=== PATIENT | male | born 1990 | race Hispanic/Latino ===

== ENCOUNTER 2019-12-11 12:40 | Outpatient (CLI) | payer OTHER, SELFPAY ==
--- NOTE | ~2019-12-11 | XR_ITS ---
XR ankle LT min 3V 12/11/2019 13:07 Indication: Left ankle pain Procedure: 4 views left ankle Comparison: No prior studies for comparison. Findings: No acute fracture or traumatic malalignment. Ankle mortise intact. Talar dome is normal. No significant soft tissue abnormality. No radiopaque foreign bodies. Impression: 1: No significant bone or joint abnormality. Reviewed, dictated and finalized at location A. Impression: 1: No significant bone or joint abnormality.
--- NOTE | ~2019-12-11 | XR_ITS ---
XR knee LT 3V 12/11/2019 13:07 Indication: Left knee pain Procedure: 3 views left knee Comparison: No prior studies for comparison. Findings: No fracture, subluxation or dislocation. No significant joint space narrowing. No joint eff usion. No focal soft tissue abnormality. Impression: 1: No significant bone or joint abnormality. Reviewed, dictated and finalized at location A. Impression: 1: No significant bone or joint abnormality.
== END 2019-12-11 12:41 | disposition home or self-care (01) ==
PROVIDERS: PCP Family Medicine; Visit Provider Family Medicine
DX: M25.572 Pain in left ankle and joints of left foot (principal)
CPT/HCPCS: 73562; 73610

== ENCOUNTER 2024-05-13 09:27 | Emergency (ER) | payer OTHER, BC, SELFPAY ==
--- NOTE | 2024-05-13 09:42 | ED.GENADULT ---
HPI - General Adult General Chief complaint: Wound/Laceration Stated complaint: R LEG LACERATION Source: patient Mode of arrival: ambulatory Limitations: no limitations History of Present Illness HPI narrative: Patient presents for evaluation of right thigh laceration. Symptom onset just prior to arrival. He accidentally cut his leg using an oscillating tool at work. He reports some minimal pain in the affected area without descriptive quality or numerical rating. He has a small amount of bleeding from the laceration. He is not diabetic. Last tetanus approximately 3 years ago. Related Data Allergies Allergy/AdvReac Type Severity Reaction Status Date / Time No Known Allergies Allergy Verified 05/13/24 09:49 Review of Systems Review of Systems: CONSTITUTIONAL: Denies fever, chills, or sweats. EYES: Denies visual changes, redness, or discharge. ENT: Denies rhinorrhea, congestion, sore throat, or otalgia. CARDIOVASCULAR: Denies chest pain, palpitations, or edema. RESPIRATORY: Denies cough or dyspnea. GASTROINTESTINAL: Denies abdominal pain, nausea, vomiting, or diarrhea. GENITOURINARY: Denies dysuria or hematuria. SKIN: Reports right thigh laceration MUSCULOSKELETAL: Denies back pain, joint pain, or myalgia. NEUROLOGIC: Denies headache, numbness, dizziness, or weakness. PSYCHIATRIC: Denies anxiety or depression. FOR[facility]LY [facility], [facility] Past Medical History Medical History No pertinent past medical history Surgical History Surgical History No pertinent past surgical history Family History Family History Mother Family history non-contributory Social History Social History Smoking status: Never smoker Living arrangements: with family Gender identity (if verbalized by the patient): Male Spiritual care concerns: No Exam Narrative: GENERAL: Well-appearing, well-nourished, and in no acute distress. HEAD: Normocephalic, atraumatic. EYES: PERRLA and EOMI. ENT: Nares clear, no rhinorrhea or epistaxis. Mucous membranes moist. Oropharynx without tonsillar hypertrophy exudate or other lesions. Bilateral TMs pearly patino nonbulging NECK: Supple. No adenopathy or masses. No carotid bruits or JVD CHEST: Clear to auscultation. No respiratory distress. No wheezes rales or rhonchi HEART: Regular rate and rhythm. No murmur heard. Normal peripheral pulses. ABDOMEN: Soft, nontender, nondistended, normal active bowel sounds. EXTREMITIES: Normal range of motion. No edema. SKIN: Approximately 4 cm linear laceration in a transverse formation to the anterior aspect of the distal right thigh. There is a small amount of active sanguinous drainage NEURO: No focal deficits. Alert and oriented x3. PSYCH: Normal mood and affect. Course Course Emergency Course: This is a 33-year-old male who presented for evaluation right thigh laceration. Wound was thoroughly irrigated and closed with sutures. Pt tolerated well. He is UTD on tetanus. Advised on wound care. Increase hydration. OTC agents for symptom management. Will dc with cephalexin. Follow up with primary provider and occupational health. Go to the ER for evidence infection. Pt in agreement with plan of care. Level of Care: Express Care Visit Vital Signs Vital signs: Vital Signs Temperature 36.8 C 05/13/24 09:55 Pulse Rate 61 05/13/24 09:55 Respiratory Rate 16 05/13/24 09:55 Blood Pressure 160/89 H 05/13/24 09:55 Pulse Oximetry 100 05/13/24 09:55 Temperature 36.8 C 05/13/24 09:55 Pulse Rate 61 05/13/24 09:55 Respiratory Rate 16 05/13/24 09:55 Blood Pressure 160/89 H 05/13/24 09:55 Pulse Oximetry 100 05/13/24 09:55 Procedures Laceration Laceration 1: Date: 05/13/24 Ti
[2024-05-13 09:55] VITALS: BP 160/89; PULSE 61; RESP 16; TEMP 36.8; O2SAT 100
--- NOTE | 2024-05-13 09:56 | PC.NURSE ---
0945 right pant's leg from knee down cut and removed with patient's permission, done to expose laceration and preserve modesty. 4cm laceration with small amount of bloody drainage noted to the anterior distal right thigh (above the knee). Area cleansed with wound cleanser and saline, damp 4x4 applied to laceration.
== END 2024-05-13 10:48 | disposition home or self-care (01) ==
PROVIDERS: Emergency Provider Nurse Practitioner
DX: S71.111A Laceration without foreign body, right thigh, initial encounter (principal); W29.8XXA Contact with other powered hand tools and household machinery, initial encounter; Y99.0 Civilian activity done for income or pay
CPT/HCPCS: 12002; 99213; G0463; J2003

== ENCOUNTER 2024-05-26 11:16 | Emergency (ER) | payer OTHER, SELFPAY ==
[2024-05-26 11:31] VITALS: BP 127/77; PULSE 66; RESP 16; TEMP 36.6; O2SAT 98
--- NOTE | 2024-05-26 11:40 | ED.WOUNDLAC ---
HPI - Wound/Laceration General Chief Complaint: Wound/Laceration Stated Complaint: Removal of Stitches Time Seen by Provider: 05/26/24 11:29 Source: patient, RN notes reviewed and old records reviewed Mode of arrival: ambulatory Limitations: no limitations History of Present Illness HPI narrative: Patient presents today for suture removal. Sutures were placed in the right anterior thigh on 05/13/2024. Patient denies any difficulties with the sutures. Related Data Allergies Allergy/AdvReac Type Severity Reaction Status Date / Time No Known Allergies Allergy Verified 05/13/24 09:49 Review of Systems Review of Systems: CONSTITUTIONAL: Denies body aches, fever, chills, or sweats. EYES: Denies visual changes, redness, or discharge. ENT: Denies rhinorrhea, congestion, sore throat, or otalgia. CARDIOVASCULAR: Denies chest pain, palpitations, or edema. RESPIRATORY: Denies cough or dyspnea. GASTROINTESTINAL: Denies abdominal pain, nausea, vomiting, or diarrhea. GENITOURINARY: Denies dysuria or hematuria. SKIN: Healing Laceration to right thigh MUSCULOSKELETAL: Denies back pain, joint pain, or myalgia. NEUROLOGIC: Denies headache, numbness, tingling, or weakness. PSYCH: Denies depression or anxiety. PMFSH Past Medical History Medical History No pertinent past medical history Surgical History Surgical History No pertinent past surgical history Family History Family History Mother Family history non-contributory Social History Social History Smoking status: Never smoker Living arrangements: with family Gender identity (if verbalized by the patient): Male Spiritual care concerns: No Comments At time of signature, I have reviewed and agree with nursing past medical, surgical, social and family history unless otherwise noted. Please see nursing chart for further information. There is no relevant family history pertinent to the presenting complaint Exam Narrative: GENERAL: Well-appearing, well-nourished, and in no acute distress. HEAD: Normocephalic, atraumatic. EYES: EOMI. No redness or drainage. Conjunctivae normal. ENT: Mucous membranes pink and moist. NECK: Normal AROM. CHEST: No respiratory distress. EXTREMITIES: Normal range of motion. No edema. SKIN: Warm, dry, no rash. Capillary refill normal. Normal skin turgor. Seven intact sutures to the right anterior thigh. No surrounding erythema, induration, drainage, edema. NEURO: No focal deficits. Alert and oriented x3. Gait steady. PSYCH: Normal affect. No signs of depression or anxiety. Course Course Level of Care: Express Care Visit Vital Signs Vital signs: Vital Signs Temperature 98 F 05/26/24 11:31 Pulse Rate 66 05/26/24 11:31 Respiratory Rate 16 05/26/24 11:31 Blood Pressure 127/77 05/26/24 11:31 Pulse Oximetry 98 05/26/24 11:31 Oxygen Delivery Room Air 05/26/24 11:31 Temperature 98 F 05/26/24 11:31 Pulse Rate 66 05/26/24 11:31 Respiratory Rate 16 05/26/24 11:31 Blood Pressure 127/77 05/26/24 11:31 Pulse Oximetry 98 05/26/24 11:31 Oxygen Delivery Room Air 05/26/24 11:31 Reviewed Procedures Other Procedure Procedure 1: Other Procedure: Seven intact sutures removed from right thigh without evidence of infection. MDM - Wound/Laceration MDM Narrative Medical decision making narrative: Sutures removed without incident. Patient tolerated procedure well. Differential Diagnosis Differential diagnosis: Likely laceration, abscess and other (Cellulitis) Critical Care Time Critical Care Time Critical Care Time: No Discharge Plan Discharge Clinical Impression: Visit for suture removal Patient Disposition: Home, Self-Care
== END 2024-05-26 11:44 | disposition home or self-care (01) ==
PROVIDERS: Emergency Provider Nurse Practitioner
DX: S71.111D Laceration without foreign body, right thigh, subsequent encounter (principal); X58.XXXD Exposure to other specified factors, subsequent encounter
CPT/HCPCS: 99211; G0463